=== PATIENT | female | born 1985 | race Caucasian/White ===

== ENCOUNTER 2018-09-19 09:21 | Day surgery (SDC) | payer BC ==
[2018-09-16 17:26] LABS: Urine Appearance CLEAR; Urine Bilirubin NEGATIVE (NEG); Urine Blood NEGATIVE (NEG); Urine Color YELLOW; Urine Glucose NEGATIVE (NEG); Urine Protein NEGATIVE (NEG); Urine Specific Gravity >=1.030 (1.005-1.030); Urine pH 5.5 (5.0-7.0)
[2018-09-16 17:28] LABS: Absolute Lymphocytes (CBC) 2.5 K/uL (0.7-4.9); Basophils % 0.7 % (0-1.3); Hematocrit 42.1 % (36.0-45.0); Lymphocytes % 40.3 % (15.3-44.8)
[2018-09-16 17:36] LABS: Urine Microscopic Reflex ORDER UMIC
[2018-09-16 17:46] LABS: Calcium Oxalate Crystals- Ur PRESENT (NONE SEEN); Urine Bacteria <20 /HPF (<20); Urine Culture Reflex Order REFLEXED; Urine RBC NONE SEEN /HPF (NONE SEEN)
--- NOTE | 2018-09-17 07:46 | EKG ---
Test Date: 2018-09-16 Test Time: 16:46:08 Screw Machine Tool Setter: KATINA MEASUREMENT RESULTS: Intervals: Rate: 60 TN: 130 QRSD: 80 QT: 438 QTc: 438 [place]: P: 12 TN: 130 QRS: 36 T: 37 INTERPRETIVE STATEMENTS: Normal sinus rhythm with sinus arrhythmia Normal ECG No previous ECG available for comparison Electronically Signed On 09-17-18 07:46:18 CDT by Darin Devine
[2018-09-19] MEDS ORDERED: SCOPOLAMINE HYDROBROMIDE PATCH TD ONE (09:54)
[2018-09-19] MEDS ORDERED: Ringers Lactate 1,000 ML IV ONE ×2 (09:54→12:07)
[2018-09-19] MEDS ORDERED: PROPOFOL 200 MG/20 ML VIAL IV ONE (10:39)
[2018-09-19] MEDS ORDERED: GLYCOPYRROLATE 0.2 MG/ML SYR ONE ×2 (10:39→11:46)
[2018-09-19] MEDS ORDERED: LIDOCAINE 2% MPF 5 ML VIAL ONE (10:40)
[2018-09-19] MEDS ORDERED: FENTANYL CITR 250 MCG/5 ML ONE (10:41)
[2018-09-19] MEDS ORDERED: ROCURONIUM 50 MG/5 ML VIAL IV ONE ×2 (10:43→12:00)
[2018-09-19] MEDS ORDERED: ONDANSETRON 4 MG/2 ML VIAL ONE (10:44)
[2018-09-19] MEDS ORDERED: MIDAZOLAM HCL 2 MG/2 ML INJ ONE (10:44)
[2018-09-19] MEDS ORDERED: NA CHLORIDE 0.9% 1,000 ML ONE (11:01)
[2018-09-19] MEDS ORDERED: dexAMETHasone 10 MG/ML VIAL ONE (11:46)
[2018-09-19] MEDS ORDERED: NEOSTIGMINE 1 MG/ML -10 ML VIAL ONE (11:47)
[2018-09-19] MEDS ORDERED: EPHEDRINE SULF 50 MG/ML VIAL ONE (11:47)
[2018-09-19] MEDS ORDERED: FENTANYL CITR 100 MCG/2 ML ONE (12:04)
[2018-09-19] MEDS ORDERED: NS 0.9% VIAL 10 ML ONE (12:28)
[2018-09-19] MEDS ORDERED: VECURONIUM 10 MG/VIAL IV ONE (12:28)
[2018-09-19] MEDS ORDERED: KETOROLAC 30 MG/ML INJ ONE (13:13)
[2018-09-19] MEDS ORDERED: PROMETHAZINE 25 MG/ML VIAL ONE (13:51)
[2018-09-19] MEDS: HYDROMORPHONE HCL 1 MG/ML INJ ONE ×2 (13:53→13:58)
[2018-09-19] MEDS ORDERED: HYDROCODONE/APAP 5/325 MG TAB ONE (14:39)
[2018-09-19] MEDS ORDERED: HYDROCODONE/APAP 5/325 MG TAB PO ONE (14:40)
--- NOTE | 2018-09-21 04:32 | OP ---
Date of Procedure: 09/19/2018 Surgeon: Jewels Ken MD Media Clerk: Natasha Conte. Preoperative Diagnoses: Pelvic pain, dysmenorrhea, irregular periods. Postoperative Diagnoses: Pelvic pain, dysmenorrhea, irregular periods, and endometriosis. Procedures Performed: Diagnostic hysteroscopy, diagnostic laparoscopy, endometriosis excision, right ureterolysis. Anesthesia: General endotracheal. Estimated Blood Loss: Minimal. Specimens: Endometriosis, implants from right periureteric area, right lateral wall, and left uteros acral and lateral wall. Findings: The anterior peritoneum had no abnormalities. The ureters were pulled close to the uteros acral ligaments. Ureterolysis had to be performed in order for me to excise the implants from the di stal uterosacral ligament in the last 5 to 7 cm. There were implants on the lateral aspect of the ur eter, very close to the obturator space and obturator lymph nodes. Here, it was almost like an Abel Masters signs. Similar location on the opposite side, implants were present and also on the left ut erosacral ligament going down the ligament. The ureter, however, was farther away from the implant t hat was on the right side. Uterus cavity was empty, unremarkable. No intracavitary lesions. The endometrium appeared to be com pletely unremarkable. The patient is a 32-year-old who has severe dysmenorrhea, pelvic pain, progressively increasing pelvi c pain. She has been tried on oral contraceptives, depo-medroxyprogesterone, and elagolix which is a GnRH antagonist and despite everything, after initial response on the depo progressively, her pain g ot worse and on elagolix, she had very minimal response, although the dose was maximized. Went on to see if she was interested in the options of Lupron. She declined this. So, diagnostic la paroscopy endo treatment was offered to this patient. She was consented and taken to the OR. Description Of Procedure: After informed consent was verified, she was taken back to OR, placed in s upine fashion on the operating table. General anesthesia was given, she was placed in a dorsal litho ayaz position. Pelvic exam was performed. Arms tucked by the side. SCDs placed, pumps started. No antibiotics given. Time-out was done. Abdomen, vulva, vagina, and perineum were prepped and draped in a sterile fashion. [place] was placed to drain the bladder. Anterior lip grasped with 2 Allis clamps and diagnostic SlimLine hysteroscope was used to perform hysteroscopy through the cervical canal directly into the uterine cavity. Cavity empty, unremarkable lining. Both tubal ostia seen. Scope removed. Diagnostic VCare introduced. F nina attached to a drainage bag. This area was draped. A 1 cm infraumbilical incision was made with a scalpel using the open laparoscopy technique. Fascia tagged with 0 Vicryl sutures. Peritoneum entered bluntly. S retractors placed and Robina introduced . Site of entry checked, unremarkable, insufflated without problems. Upper abdominal surfaces compl etely unremarkable. Omentum unremarkable. Peritoneal surfaces above the liver also normal. After t he patient was placed in Trendelenburg position, anterior peritoneum, anterior cul-de-sac, lateral an terior rust were all checked and were unremarkable. Slightly more than expected amount of fluid and some peritoneal cysts that were suctioned out with the suction tip. Two 5 ports were placed. Supra pubic and left lower quadrant and later right lower quadrant port was placed as well. Then on inspec tion in the posterior cul-de-sac, the cul-de-sac was free, however, uterosacral ligaments on both luke es had implants. The right ureter was pole close to the uterosacral ligament and it had findings as dictated above in the findings. There were periureteric implants both on the lateral aspect of the u reter at the level of the ureteric tunnel going onto the uterosacral ligaments. The uterosacral liga ment was from the ureter by opening up the peritoneum laterally about 7-8 cm parallel to th e ureter and lateral. Once this was done, this was opened up. The medial leaf of the broad ligament was from the ureter itself. The blood supply came from the lateral aspects. It was staye d on the medial side. Then, the entire peritoneum was dissected off the ureter with the implants. T he lateral implants going down to the obturator space, these were also excised circumferentially with the help of scissors and then monopolar needle to remove them hemostatically. There was 1 area that needed a bipolar medium tip cautery and it was completely hemostatic after it was done. No evidence of any trauma to the ureter. It was skeletonized all the way to the ureteric tunnel and no problems were seen. The peritoneum was able to be resected and some part of the uterosacral ligament also moore d to be removed along with the implants about 65-7 cm proximal to the incision at the end the uterus or at the top of the vagina. On the opposite side, similar dissection was performed opening of the p eritoneum with scissors and carrying the dissection from the underlying layers from the endometriotic implants with the help of push spread technique making windows and taken down with the help of the m onopolar and bipolar. The implants were resected from the uterosacral with the help of the monopolar and handed out for permanent pathology. All the areas were thoroughly irrigated and suctioned. The re was excellent hemostasis. No evidence of any injury to the right ureter and was peristalsing with out any problems. Appendix was visualized and was normal. The tubes were normal. Ovaries were norm al. Uterus was unremarkable on the exterior surface. The gas was desufflated. All ports were remov ed under direct vision. Umbilical port was taken out after gas was taken out. Fascia here was close d with 0 Vicryl stitch that was tacked, tying at both ends and a simple 0 Vicryl to bring the subcuta neous tissue together, 4-0 Vicryl interrupted, and Dermabond. Instrument, needle, and sponge counts were correct at the end of the case. The patient tolerated the procedure well. She will follow up w javed garcia in 1 week. TRUNG Voice ID: [id number] Report ID: [id number]
== END 2018-09-19 15:28 | disposition home or self-care (01) ==
LOC: OR 09:21
PROVIDERS: ATTEND Obstetrics & Gynecology
PROC: 0TB64ZZ Excision of Right Ureter, Percutaneous Endoscopic Approach (ICD-10-PCS; 2018-09-19)
PROC: 0TN64ZZ Release Right Ureter, Percutaneous Endoscopic Approach (ICD-10-PCS; 2018-09-19)
PROC: 0UJD8ZZ Inspection of Uterus and Cervix, Via Natural or Artificial Opening Endoscopic (ICD-10-PCS; 2018-09-19)
PROC: 0UB44ZZ Excision of Uterine Supporting Structure, Percutaneous Endoscopic Approach (ICD-10-PCS; principal; 2018-09-19 10:30)
DX: N92.6 Irregular menstruation, unspecified (principal); N94.6 Dysmenorrhea, unspecified; R10.2 Pelvic and perineal pain; N80.3 Endometriosis of pelvic peritoneum; N80.8 Other endometriosis; I49.9 Cardiac arrhythmia, unspecified; J45.909 Unspecified asthma, uncomplicated; Z88.3 Allergy status to other anti-infective agents; Z80.3 Family history of malignant neoplasm of breast; Z82.49 Family history of ischemic heart disease and other diseases of the circulatory system
CPT/HCPCS: 58555; 58662; 50949; 93005; 87088; 85025; 87086; 36415; 86900; 86850; 81025; 86901; 88305; 85730; J2704; J2710; J2550; J2250; J3010 ×2; J1100; J1170; J7030; J2405; 81003; 81015

== ENCOUNTER 2020-06-16 07:10 | Day surgery (SDC) | payer BC ==
[2020-06-14 10:21] LABS: Basophils % 0.5 % (0-1.3); Hematocrit 44.4 % (36.0-45.0); Lymphocytes % 26.6 % (15.3-44.8); MPV 8.2 fL (7.6-11.3); RBC Red Blood Cell Count 5.02 M/uL (3.86-4.86)
[2020-06-14 10:45] LABS: BUN Blood Urea Nitrogen 12 mg/dL (7-18); Bicarbonate 29 mmol/L (21-32); Glucose Level 96 mg/dL (74-106); Potassium 4.2 mmol/L (3.5-5.1); Sodium Level 140 mmol/L (136-145)
[2020-06-16 07:30] LABS: Specific Gravity 1.025 (1.005-1.030)
[2020-06-16] MEDS ORDERED: CEFOXITIN/SWI 1gm 1 GM/10 ML SYR ONE (07:53)
[2020-06-16] MEDS ORDERED: Ringers Lactate 1,000 ML IV ONE (07:53)
[2020-06-16] MEDS ORDERED: LIDOCAINE 2% MPF 5 ML VIAL ONE (08:22)
[2020-06-16] MEDS ORDERED: MIDAZOLAM HCL 2 MG/2 ML INJ ONE (08:22)
[2020-06-16] MEDS ORDERED: ROCURONIUM 50 MG/5 ML VIAL IV ONE (08:22)
[2020-06-16] MEDS ORDERED: ONDANSETRON 4 MG/2 ML VIAL ONE (08:22)
[2020-06-16] MEDS ORDERED: FENTANYL CITR 100 MCG/2 ML ONE (08:22)
[2020-06-16] MEDS ORDERED: dexAMETHasone 10 MG/ML VIAL ONE (08:22)
[2020-06-16] MEDS ORDERED: propofoL 200 MG/20 ML VIAL IV ONE (08:22)
[2020-06-16] MEDS ORDERED: GLYCOPYRROLATE 0.2 MG/ML SYR ONE ×2 (10:45→10:52)
[2020-06-16] MEDS ORDERED: KETOROLAC 30 MG/ML INJ ONE (10:53)
[2020-06-16] MEDS ORDERED: NEOSTIGMINE 1 MG/ML -5 ML ONE (10:53)
[2020-06-16] MEDS ORDERED: MORPHINE 10 MG/ML VIAL ONE (11:10)
[2020-06-16 11:28] VITALS: TEMP 97.1
--- NOTE | 2020-06-16 11:38 | OP ---
Date of Procedure: 06/16/2020 Surgeon: Atif Pittman MD Mixing Machine Tender Cork Rod: None. Preoperative Diagnoses: Chronic cholecystitis and biliary dyskinesia. Postoperative Diagnoses: Chronic cholecystitis and biliary dyskinesia. Procedure: Laparoscopic cholecystectomy. Estimated Blood Loss: Minimal. Specimen: Gallbladder. Finding: As above. Anesthesia: General. Complications: None. Disposition: The patient tolerated the procedure in stable condition and taken to Recovery in good g eneral condition. Procedure In Detail: The patient was brought to the OR and placed in supine position. General anest hesia begun. The patient was prepped and draped in the usual sterile fashion. The patient had ICG i njected before surgery for evaluation of the cystic duct and common bile duct and hepatic ducts, and then the patient was prepped and draped in usual sterile fashion. Marcaine 0.5% infiltrated locally. A 15-blade was used to make a 1 cm infraumbilical midline incision. Subcutaneous tissue was divide d. Fascia was identified and divided. A #1 Vicryl stay suture was placed and then peritoneal cavity entered with sharp and blunt dissection. A 12 mm trocar was placed into the peritoneal cavity under direct vision. Pneumoperitoneum was established and then three 5 mm trocars were placed, 1 in the e pigastrium just to the right of midline and 2 in the right subcostal region. Laparoscopy revealed ch ronic inflammation of the gallbladder. Fundus was retracted superiorly. Infundibulum was identified and retracted inferolaterally. Cystic duct and cystic artery were clearly identified with blunt dis section. Clips were placed. Both structures were divided. Cautery was used to remove the gallbladd er from the liver bed. Bleeding of the liver bed was controlled with cautery. Gallbladder was retri eved through the umbilicus via an EndoCatch bag. Right upper quadrant was irrigated. Effluent was c lear. No evidence of bleeding or bile leakage appreciated. Subsequently, all trocars were removed u nder direct vision. Stay sutures were tied to each other to reapproximate the fascial defect. Subcu taneous wounds were irrigated. Bleeding was controlled with cautery. A 3-0 chromic was used to reapp roximate the subcutaneous tissue and anh were used to close the skin. Sterile dressing was appli ed. The patient was awakened and taken to Recovery in good general condition. Discharge Note: The patient will go to Day Surgery and home when stable. Disposition: Home. Condition: Stable. Discharge Instructions: Resume home medications and diet. Activity as tolerated. No heavy lifting. Remove outer dressing in 2 days. Shower. Keep wound clean and dry. Follow up in my office 1 week . Call for appointment. Tylenol No.3 one tablet q.4 p.r.n. pain. Incentive spirometry as ordered. /MODL Voice ID: [id number] Report ID: [id number]
[2020-06-16] MEDS ORDERED: MEPERIDINE HCL 25 MG/ML SYR ONE (11:41)
[2020-06-16] MEDS ORDERED: HYDROCODONE/APAP 7.5/325 MG TAB ONE (12:19)
[2020-06-16 13:45] VITALS: BP 102/59; O2SAT 99
== END 2020-06-16 12:35 | disposition home or self-care (01) ==
LOC: OR 07:10
PROVIDERS: ATTEND Surgery
PROC: 0FT44ZZ Resection of Gallbladder, Percutaneous Endoscopic Approach (ICD-10-PCS; principal; 2020-06-16 09:15)
DX: K81.1 Chronic cholecystitis (principal); K82.8 Other specified diseases of gallbladder; Z20.822 Contact with and (suspected) exposure to COVID-19
CPT/HCPCS: 85025; 80048; 36415; 81025; 88304; 47562; U0003; J2704; J2250; J3010; J1100; J2175; J2710; J7120; J2405